=== PATIENT | male | born 1985 | race Caucasian/White ===

== ENCOUNTER 2019-04-07 19:26 | Emergency (ER) | payer OTHER ==
[~2019-04-07] VITALS: Ht 188 cm; Wt 74.4 kg
[2019-04-07] MEDS ORDERED: PROPRANOLOL HCL20 MG ORAL (19:33)
[2019-04-07] MEDS ORDERED: TAPAZOLE10 MG ORAL (19:33)
[2019-04-07 19:34] VITALS: BP 131/80
--- NOTE | 2019-04-07 19:34 | NUR ---
ED Nurse Note: Pt arrived ED from home. c/o headache today 09/02, denied injury. Pt states that " I want pain medicine of Dilaudid". Pt is A/O X4. Vital signs stable at this time, waiting for orders.
[2019-04-07] MEDS ORDERED: Metoclopramide 10mg/2ml Inj IVP ONE (19:45)
[2019-04-07] MEDS ORDERED: DiphenhydrAMINE 50mg/ml Inj IVP ONE (19:45)
[2019-04-07 20:10] VITALS: BP 131/80
--- NOTE | 2019-04-07 20:10 | NUR ---
ED Nurse Note: Pt has seen by William Estrada/NATHAN. but pt refused to have further treatment by William Estrada/NATHAN. And states that " I don't want PA to be seen" , and went out of ED. Accompanied by his girlfriend.
--- NOTE | 2019-04-07 20:14 | Emergency Room Report ---
History of Present Illness General Chief Complaint: Headache Source: Patient Present Illness HPI 33-year-old male presents to the emergency department complaining of migraine headache that will only respond to IV Dilaudid. Patient is very adamant about specifically receiving Dilaudid for his medical management before being seen. Once the patient was advised that Dilaudid is not a primary secondary treatment provided in our emergency Department this patient refused further service and refused a medical screening exam. For this reason this patient has left without being seen. Allergies: Coded Allergies: No Known Allergies (Unverified , 04/07/19) Nursing Documentation-[facility] Past Medical History: No History, Except For Physical Exam Vital Signs Date Time Temp Pulse Resp B/P (MAP) Pulse Ox O2 Delivery O2 Flow Rate FiO2 04/07/19 19:28 98.2 97 18 98 Room Air Medical Decision Making PA Attestation Dr. whelan is my supervising Physician whom patient management has been discussed with. Diagnostic Impression: Primary Impression: Drug-seeking behavior ER Course 33-year-old male presents to the emergency department complaining of migraine headache that will only respond to IV Dilaudid. Patient is very adamant about specifically receiving Dilaudid for his medical management before being seen. Once the patient was advised that Dilaudid is not a primary secondary treatment provided in our emergency Department this patient refused further service and refused a medical screening exam. For this reason this patient has left without being seen. Last Vital Signs Date Time Temp Pulse Resp B/P (MAP) Pulse Ox O2 Delivery O2 Flow Rate FiO2 04/07/19 19:28 98.2 97 18 98 Room Air Disposition: LEFT W/OUT BEING SEEN Condition: Unknown Natalie Thomas April 07, 2019 20:14
== END 2019-04-07 20:10 | disposition left against medical advice (07) ==
LOC: EMR 19:50
DX: G43.909 Migraine, unspecified, not intractable, without status migrainosus (principal); Z76.5 Malingerer [conscious simulation]; Z53.21 Procedure and treatment not carried out due to patient leaving prior to being seen by health care provider